=== PATIENT | female | born 1975 | race Two or more races ===

== ENCOUNTER 2023-09-03 11:15 | Inpatient (IN) | payer OTHER ==
[~2023-09-03] VITALS: Ht 165.1 cm; Wt 81.6 kg
[2023-09-03] MEDS ORDERED: GLUMETZA500 MG PO (13:46)
[2023-09-03] MEDS ORDERED: LIPITOR40 M1 PO (13:46)
[2023-09-10 04:44] LABS: MEAN CORPUSCULAR HGB CONC 31.5 g/dl (32.0-36.0); PLATELET COUNT 429 K/uL (150-450); RED BLOOD COUNT 4.63 M/uL (4.00-6.00)
[2023-09-10 04:45] LABS: HEMATOCRIT 30.9 % (36.0-45.00); HEMOGLOBIN 9.7 g/dL (12.0-15.00); MEAN CELL VOLUME 66.7 fL (80.00-100.00); MEAN CORPUSCULAR HEMOGLOBIN 20.9 pg (27.00-32.0); RED CELL DISTRIBUTION WIDTH 18.7 % (11.5-14.5)
[2023-09-10 04:54] LABS: CALCIUM 8.5 mg/dL (8.5-10.1); CREATININE SERUM 0.63 mg/dL (0.55-1.02); GFR 101.29; POTASSIUM 3.99 mEq/L (3.5-5.1)
== END 2023-09-11 15:01 | disposition home or self-care (01) | DRG 743 ==
LOC: OB/GYN 09-09 11:15 → O/R 09-09 15:39 → SURG 09-09 15:39
PROVIDERS: Obstetrics & Gynecology; ADMIT Obstetrics & Gynecology Gynecologic Oncology; ATTEND Obstetrics & Gynecology Gynecologic Oncology
PROC: 0UT54ZZ Resection of Right Fallopian Tube, Percutaneous Endoscopic Approach (ICD-10-PCS; 2023-09-09)
PROC: 0UT04ZZ Resection of Right Ovary, Percutaneous Endoscopic Approach (ICD-10-PCS; 2023-09-09)
PROC: 0TN74ZZ Release Left Ureter, Percutaneous Endoscopic Approach (ICD-10-PCS; 2023-09-09)
PROC: 0TN64ZZ Release Right Ureter, Percutaneous Endoscopic Approach (ICD-10-PCS; 2023-09-09)
PROC: 0UB44ZZ Excision of Uterine Supporting Structure, Percutaneous Endoscopic Approach (ICD-10-PCS; 2023-09-09)
PROC: 0UT94ZZ Resection of Uterus, Percutaneous Endoscopic Approach (ICD-10-PCS; principal; 2023-09-09 15:15)
DX: D25.2 Subserosal leiomyoma of uterus (principal); N80.8 Other endometriosis; N80.00 Endometriosis of the uterus, unspecified; N80.101 Endometriosis of right ovary, unspecified depth; N80.201 Endometriosis of right fallopian tube, unspecified depth; Z20.822 Contact with and (suspected) exposure to COVID-19